=== PATIENT | female | born 1990 | race Hispanic/Latino ===

== ENCOUNTER 2021-12-05 04:09 | Emergency (ER) | payer SELFPAY ==
[~2021-12-05] VITALS: Ht 160 cm; Wt 81.6 kg
[2021-12-05] MEDS ORDERED: METHYLPREDNISOLONE SOD SUCC 125 MG/2ML VIAL IM ONE (04:30)
[2021-12-05] MEDS ORDERED: DIPHENHYDRAMINE HCL 25 MG CAP PO ONE (04:30)
[2021-12-05] MEDS ORDERED: FAMOTIDINE 20 MG TAB PO ONE (04:30)
[2021-12-05] MEDS ORDERED: MEDROL4 M2 PO (04:41)
[2021-12-05] MEDS ORDERED: DIPHENHYDRAMINE HCL 25 MG CAP ONE (04:44)
[2021-12-05] MEDS ORDERED: FAMOTIDINE 20 MG TAB ONE (04:44)
== END 2021-12-05 05:23 | disposition home or self-care (01) ==
LOC: ER 04:26
DX: T63.421A Toxic effect of venom of ants, accidental (unintentional), initial encounter (principal); T78.40XA Allergy, unspecified, initial encounter
CPT/HCPCS: 99283; J2930

== ENCOUNTER 2021-12-13 17:35 | Emergency (ER) | payer SELFPAY ==
[~2021-12-13] VITALS: Ht 160 cm; Wt 81.6 kg
[~2021-12-13 17:35] MED LIST: MEDROL4 M2 PO
[2021-12-13] MEDS ORDERED: TRIAMCINOLONE A15 G3 TP (17:48)
[2021-12-13] MEDS ORDERED: MEDROL4 M2 PO (17:48)
== END 2021-12-13 17:52 | disposition home or self-care (01) ==
LOC: ER 17:37
DX: S00.269A Insect bite (nonvenomous) of unspecified eyelid and periocular area, initial encounter (principal); S10.96XA Insect bite of unspecified part of neck, initial encounter; S40.862A Insect bite (nonvenomous) of left upper arm, initial encounter; W57.XXXA Bitten or stung by nonvenomous insect and other nonvenomous arthropods, initial encounter
CPT/HCPCS: 99282